=== PATIENT | female | born 1965 | race Caucasian/White ===

== ENCOUNTER → 2019-10-15 | Outpatient (CLI) | payer OTHER ==
--- NOTE | 2019-10-15 08:53 | Diagnostic Imaging Report ---
EXAMINATION: Right foot INDICATION: Injury 3 views were obtained. There are no prior studies available for comparison. The lateral view does show considerable soft tissue edema along the anterior aspect of the forefoot. There is no radiopaque foreign body identified in this area nor is there any sign of a fracture. 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 There is also a calcaneal spur. The Lisfranc joint seems well maintained. IMPRESSION: There is soft tissue edema along the anterior aspect of the forefoot. There is no radiopaque foreign body identified nor is there any sign of a fracture, however. Dictated by: Dictated on workstation # [id number]
== END ==
LOC: RAD 07:30
PROVIDERS: ATTEND Emergency Medicine
DX: S90.31XA Contusion of right foot, initial encounter (principal); X58.XXXA Exposure to other specified factors, initial encounter
CPT/HCPCS: 73630